=== PATIENT | female | born 1985 | race Caucasian/White ===

== ENCOUNTER 2017-07-19 23:10 | Emergency (ER) | payer MEDICAID ==
[~2017-07-19] VITALS: Ht 170.2 cm; Wt 108.9 kg
[2017-07-19 23:24] VITALS: BP_SYST 156
[2017-07-19] MEDS ORDERED: NACL 0.9% 1,000 ML IV ONE (23:35)
[2017-07-19] MEDS ORDERED: KETOROLAC TROMETHAMINE 30 MG VIAL IVP ONE (23:45)
[2017-07-19] MEDS ORDERED: PANTOPRAZOLE SODIUM 40 MG/VIAL (PROTONIX) IVP ONE (23:45)
[2017-07-19 23:58] LABS: BASOPHILS # (AUTO) 0.1 K/uL (0.0-0.2); BASOPHILS % (AUTO) 0.9 % (0.0-2.0); EOSINOPHILS # (AUTO) 0.3 K/uL (0.0-0.4); EOSINOPHILS % (AUTO) 2.4 % (0.0-4.0); HEMATOCRIT 42.6 % (36-48); HEMOGLOBIN 13.8 g/dL (12.0-16.0); LYMPHOCYTES # (AUTO) 2.3 K/uL (1.0-5.5); LYMPHOCYTES % (AUTO) 19.4 % (20.5-51.5); MEAN CORPUSCULAR HEMOGLOBIN 29 pg (27-31); MEAN CORPUSCULAR HGB CONC 32 % (32-36); MEAN CORPUSCULAR VOLUME 89 fL (79.0-98.0); MONOCYTES # (AUTO) 0.6 K/uL (0.0-1.0); MONOCYTES % (AUTO) 4.8 % (1.7-9.3); NEUTROPHILS # (AUTO) 8.8 K/uL (1.8-7.7); NEUTROPHILS % (AUTO) 72.5 % (40.0-70.0); PLATELET COUNT (AUTO) 337 K/uL (130-430); RED CELL DISTRIBUTION WIDTH 12.5 % (9.0-15.0); WHITE BLOOD COUNT (AUTO) 12.1 K/uL (4.8-10.8)
[2017-07-20 00:13] LABS: CALCIUM 8.9 mg/dL (8.4-11.0); CREATININE 0.86 mg/dL (0.55-1.30); POTASSIUM 3.8 mmol/L (3.5-5.1)
[2017-07-20 00:19] LABS: ALBUMIN 3.3 g/dL (3.4-4.8); TOTAL BILIRUBIN 0.3 mg/dL (0.0-1.0)
[2017-07-20 01:50] VITALS: BP_SYST 141
== END 2017-07-20 01:50 | disposition home or self-care (01) ==
LOC: SED 23:10
DX: K80.50 Calculus of bile duct without cholangitis or cholecystitis without obstruction (principal); Z88.8 Allergy status to other drugs, medicaments and biological substances
CPT/HCPCS: 36415; 76700; 80053; 83690; 85025; 93005; 96361; 96374; 96375; 99285; C9113; J1885; J7030

== ENCOUNTER → 2021-12-16 | Emergency (ER) | payer MEDICAID ==
[~2021-12-16] VITALS: Ht 170.2 cm; Wt 108.9 kg
[~2021-12-16] MED LIST: AMOX500C2 PO; HYDR-3917 PO; HYDROcodone/ACETAMIN 5-325 MG TAB (NORCO/ VICODIN) PO ONE; IBUP-1969 PO; LORA10TA7 PO
[2021-12-16 00:20] VITALS: BP_SYST 134
--- NOTE | 2021-12-16 00:20 | NUR ---
Patient triaged and placed in waiting room. VSS and patient appears in no acute distress at this time., awaiting available bed, and MD notified of need for MSE.
--- NOTE | 2021-12-16 03:39 | NUR ---
Pt brought self in from home due to sore throat and cough x 4 days and new onset of R ear ache x1 day. Denies any fevers, N&V. Pt noted afebrile. No acute signs of distress. Breathing adequately on RA.
== END | disposition home or self-care (01) ==
LOC: SED 00:13
DX: H66.91 Otitis media, unspecified, right ear (principal); J06.9 Acute upper respiratory infection, unspecified; Z88.9 Allergy status to unspecified drugs, medicaments and biological substances
CPT/HCPCS: 99283

== ENCOUNTER 2022-07-12 19:27 | Emergency (ER) | payer MEDICAID ==
[~2022-07-12] VITALS: Ht 167.6 cm; Wt 104.3 kg
[~2022-07-12 19:27] MED LIST changes: -HYDROcodone/ACETAMIN 5-325 MG TAB (NORCO/ VICODIN) PO ONE
[2022-07-12 20:49] VITALS: BP_SYST 122
--- NOTE | 2022-07-12 20:49 | NUR ---
Patient came in to the ER with no past medical history presenting complaints of rash with onset x1 week, gradual worsening, pruritic in nature. She has been taking Benadryl without relief, hydrocortisone cream w/o relief. No lip or tongue swelling, no throat closure, no wheezing, nausea or vomiting, or abdominal pain. No known new soaps or detergents, no new food eaten.
--- NOTE | 2022-07-12 22:00 | NUR ---
ER examining patient.
[2022-07-12] MEDS ORDERED: HYDC1% TP (22:11)
[2022-07-12] MEDS ORDERED: DEXAMETHASONE SOD PHOSPHATE 10 MG/ML VIAL PO ONE (22:15)
[2022-07-12 23:45] VITALS: BP_SYST 120
--- NOTE | 2022-07-12 23:45 | NUR ---
Patient given written and verbal discharge instructions and verbalizes understanding. ER MD discussed with patient the results and treatment provided. Patient in stable condition. ID arm band removed. Rx of given. Patient educated on pain management and to follow up with PMD. Pain Scale 0/10. Opportunity for questions provided and answered.
--- NOTE | 2022-07-12 23:45 | NUR ---
RX of Hydrocortisone cream sent to pharmacy of choice by ANNA CLIFFORD
== END 2022-07-12 23:45 | disposition home or self-care (01) ==
LOC: SED 19:27
DX: L23.9 Allergic contact dermatitis, unspecified cause (principal); R21 Rash and other nonspecific skin eruption; Z79.899 Other long term (current) drug therapy
CPT/HCPCS: 99283; J1100

== ENCOUNTER 2023-04-25 20:40 | Emergency (ER) | payer OTHER, MEDICAID ==
[~2023-04-25] VITALS: Ht 170.2 cm; Wt 113.4 kg
[~2023-04-25 20:40] MED LIST changes: +HYDC1% TP
[2023-04-25 21:39] VITALS: BP_SYST 149; PULSE 105; RESP 17; TEMP 98.8; O2SAT 99
[2023-04-25] MEDS ORDERED: KETOROLAC TROMETHAMINE 15 MG VIAL IVP ONE (23:00)
[2023-04-25] MEDS ORDERED: fentaNYL CITRATE/PF 100 MCG/2 ML AMP IVP ONE (23:00)
[2023-04-26] MEDS ORDERED: LIDOCAINE/EPI 1% 1:100000 20 ML VIAL INJ ONE (00:15)
[2023-04-26] MEDS ORDERED: LIDOCAINE/EPI 2% 1:100000 20 ML VIAL INJ ONE (00:42)
[2023-04-26] MEDS ORDERED: fentaNYL CITRATE/PF 100 MCG/2 ML AMP IVP ONE ×2 (00:45→01:45)
[2023-04-26] MEDS ORDERED: MORPHINE 4 MG INJ. 4 MG/ML VIAL IVP ONE (08:30)
[2023-04-26] MEDS ORDERED: ONDANSETRON HCL 4 MG/2 ML VIAL IVP ONE (08:30)
[2023-04-26] MEDS ORDERED: METHYLPREDNISOLONE SOD SUCC 40 MG/ML VIAL IVP ONE (09:30)
[2023-04-26] MEDS ORDERED: ACET-2634 PO (09:40)
[2023-04-26] MEDS ORDERED: IBUP-1969 PO (09:40)
[2023-04-26] MEDS ORDERED: MED4 PO (09:44)
[2023-04-26] MEDS ORDERED: HYDR-3927 PO (10:02)
[2023-04-26 10:24] VITALS: BP_SYST 141; PULSE 96; RESP 18; TEMP 98.6; O2SAT 97
== END 2023-04-26 10:24 | disposition home or self-care (01) ==
LOC: SED 20:40
DX: S52.351A Displaced comminuted fracture of shaft of radius, right arm, initial encounter for closed fracture (principal); Z88.8 Allergy status to other drugs, medicaments and biological substances; Z79.899 Other long term (current) drug therapy; V89.2XXA Person injured in unspecified motor-vehicle accident, traffic, initial encounter; Y93.89 Activity, other specified; Y92.89 Other specified places as the place of occurrence of the external cause; Y99.8 Other external cause status
CPT/HCPCS: 99285; 96374; 96375 ×2; 73090; 73100 ×2; 73200; 76376; 96376; J1885; J3010 ×2; J2405; J2270; J1030

== ENCOUNTER 2023-05-30 22:35 | Emergency (ER) | payer MEDICAID, OTHER ==
[~2023-05-30] VITALS: Ht 170.2 cm; Wt 90.7 kg
[~2023-05-30 22:35] MED LIST changes: +ACET-2634 PO; +HYDR-3927 PO; +MED4 PO
[2023-05-30 23:13] VITALS: BP_SYST 132; PULSE 78; RESP 18; TEMP 98; O2SAT 98
== END 2023-05-31 00:56 | disposition home or self-care (01) ==
LOC: SED 22:35
DX: M62.431 Contracture of muscle, right forearm (principal); Z88.8 Allergy status to other drugs, medicaments and biological substances; Z79.899 Other long term (current) drug therapy
CPT/HCPCS: 99281